=== PATIENT | female | born 1985 | race American Indian/Alaskan Native ===

== ENCOUNTER 2021-04-29 14:54 | Outpatient (CLI) | payer MEDICAID ==
--- NOTE | 2021-04-29 16:06 | XRay Report ---
CHEST 2 VIEWS INDICATION / CLINICAL INFORMATION: CHRONIC COUGH, PAIN, CHEST WALL DEFORMITY. COMPARISON: None available. FINDINGS: SUPPORT DEVICES: None. HEART / MEDIASTINUM: No significant abnormality. LUNGS / PLEURA: No significant pulmonary or pleural abnormality. No pneumothorax. ADDITIONAL FINDINGS: No significant additional findings. IMPRESSION: 1. No acute findings. Signer Name: Tobi Roca MD Signed: 04/29/2021 4:02 PM Workstation Name: [email or web address]
--- NOTE | 2021-05-03 08:47 | Electrocardiograph Report ---
[facility] Test Date: 2021-04-29 Test Time: 15:18:22 Pat Name: TAWNY VAZ Department: Room: Gender: F News Assistant: BARBY : [id number] Requested By: MARLON SWAIN Order Number: [id number] Reading MD: Augusto Beltran Measurements Intervals [place] Rate: 64 P: 46 MS: 168 QRS: 36 QRSD: 79 T: 34 QT: 378 QTc: 392 Interpretive Statements Sinus rhythm Probable left atrial enlargement No previous ECG available for comparison Electronically Signed On 05-03-2021 8:47:04 EDT by Augusto Beltran
== END 2021-04-29 14:55 | disposition home or self-care (01) ==
LOC: CARD 14:54
PROVIDERS: ATTEND Internal Medicine
DX: R05 Cough (principal)
CPT/HCPCS: 71046; 93005

== ENCOUNTER 2021-05-04 11:14 | Outpatient (CLI) | payer MEDICAID ==
--- NOTE | 2021-05-04 12:10 | Mammography Report ---
DIGITAL DIAGNOSTIC MAMMOGRAM WITH CAD , 05/04/2021 CLINICAL INFORMATION / INDICATION: Pain BREAST PAIN/FAMILY HX OF BREAST CANCER TECHNIQUE: Digital bilateral mammographic imaging was performed. This examination was interpreted with the benefit of Computer-aided Detection analysis. COMPARISON: None FINDINGS: Breast Density: There are scattered areas of fibroglandular density. No dominant mass, suspicious calcifications or architectural distortion in either breast. There are small oval masses with obscured margins scattered within each breast which by convention ar e benign. IMPRESSION: No mammographic evidence of malignancy. Follow up recommendation: Routine yearly BI-RADS Category 2: Benign. A "normal" or negative report should not discourage follow up or biopsy of a clinically significant f inding. A written summary of these findings will be mailed to the patient. The patient will be entered into a mammography reporting system which will generate a reminder letter for the patient's next appointmen t at the appropriate interval. According to the [employer], yearly mammograms are recommended starting at age 40 and continuing as long as a woman is in good health. Breast MRI is recommended for women with an gloria roximately 20-25% or greater lifetime risk of breast cancer, including women with a strong family his tory of breast or ovarian cancer and women who have been treated for Hodgkin's disease. Signer Name: Cj Zapata DO Signed: 05/04/2021 12:06 PM Workstation Name: [email or web address]
== END 2021-05-04 11:15 | disposition home or self-care (01) ==
LOC: MAMMO 11:14
PROVIDERS: ATTEND Internal Medicine
DX: N64.4 Mastodynia (principal); R92.8 Other abnormal and inconclusive findings on diagnostic imaging of breast
CPT/HCPCS: 77066